=== PATIENT | female | born 1960 | race Hispanic/Latino ===

== ENCOUNTER 2024-06-07 01:00 | Inpatient (IN) | payer BC ==
[2024-06-07] VITALS (7 sets, daily range): BP systolic 114–147; BP diastolic 64–88; PULSE 55–62; RESP 14–18; O2SAT 98
[~2024-06-07] VITALS: Ht 157.5 cm; Wt 53.4 kg
[2024-06-07 01:28] LABS: BASOPHILS # (AUTO) 0.07 K/uL (0.00-0.20); BASOPHILS % (AUTO) 0.8 % (0.0-5.0); EOSINOPHILS # (AUTO) 0.37 K/uL (0.00-0.70); EOSINOPHILS % (AUTO) 4.2 % (0.0-8.0); HEMATOCRIT 43.1 % (36-48); IMMATURE GRANULOCYTE ABSOLUTE 0.02 K/uL (0-1); LYMPHOCYTES # (AUTO) 2.9 K/uL (1.0-4.8); LYMPHOCYTES % (AUTO) 33.4 % (21.0-51.0); MEAN CORPUSCULAR HEMOGLOBIN 31.5 pg (27.0-33.0); MEAN CORPUSCULAR HGB CONC 33.2 g/dL (32.0-36.0); MEAN CORPUSCULAR VOLUME 94.9 fL (79-99); MONOCYTES # (AUTO) 0.7 K/uL (0.1-1.0); MONOCYTES % (AUTO) 8.2 % (3.0-13.0); NEUTROPHILS # (AUTO) 4.6 K/uL (1.8-7.7); NEUTROPHILS % (AUTO) 53.2 % (40.0-77.0); PLATELET COUNT (AUTO) 298 K/uL (130-400); RED BLOOD CELL COUNT(AUTO) 4.54 MIL/uL (4.00-5.50); RED CELL DISTRIBUTION WIDTH 12.7 % (11.0-15.5); WHITE BLOOD COUNT (AUTO) 8.7 K/uL (4.8-10.8)
[2024-06-07 01:35] LABS: APPEARANCE,URINE CLEAR (CLEAR); BILIRUBIN,URINE NEGATIVE (NEGATIVE); COLOR,URINE YELLOW (YELLOW); GLUCOSE, URINE (UA) 300 mg/dL (NEGATIVE); KETONES,URINE NEGATIVE (NEGATIVE); LEUKOCYTE ESTERASE ,URINE NEGATIVE Leu/uL (NEGATIVE); NITRATE,URINE NEGATIVE (NEGATIVE); OCCULT BLOOD,URINE NEGATIVE (NEGATIVE); PROTEIN,URINE 20 mg/dL (NEGATIVE); UROBILINOGEN,URINE 0.2 mg/dL (0.2-1.0)
[2024-06-07 01:36] LABS: CREATININE 0.6 mg/dL (0.5-1.0); POTASSIUM 4.3 mmol/L (3.5-5.1)
[2024-06-07 01:39] LABS: ADD UA MICROSCOPIC YES
[2024-06-07 01:41] LABS: RBC,URINE 0-1 /HPF (0-1); SQUAMOUS EPITHELIAL CELL,UR RARE /HPF (0-2); WBC,URINE 0-1 /HPF (0-1)
[2024-06-07 01:52] LABS: ALBUMIN 3.9 g/dL (3.5-5.0); BILIRUBIN,TOTAL 2.4 mg/dL (0.2-1.0); TOTAL PROTEIN, SERUM 7.9 g/dL (6.0-8.3)
[2024-06-07] MEDS: MORPHINE 2 MG SYG IVP ONE (03:02)
[2024-06-07] MEDS ORDERED: LEVO75CA5 PO (03:37)
[2024-06-07] MEDS ORDERED: ROSU10TA72 PO (03:37)
[2024-06-07] MEDS ORDERED: METF-445 PO (03:37)
[2024-06-07] MEDS ORDERED: EMPA25TA PO (03:37)
[2024-06-07] MEDS: DEXTROSE 5 %-0.45 % NACL 1,000 ML IV SCH (04:00)
[2024-06-07] MEDS ORDERED: ONDANSETRON 4MG INJ IVP PRN (04:00)
[2024-06-07] MEDS ORDERED: MELO-108 PO (05:36)
[2024-06-07 08:55] LABS: BASOPHILS # (AUTO) 0.06 K/uL (0.00-0.20); BASOPHILS % (AUTO) 0.9 % (0.0-5.0); EOSINOPHILS # (AUTO) 0.26 K/uL (0.00-0.70); EOSINOPHILS % (AUTO) 3.7 % (0.0-8.0); HEMATOCRIT 39.6 % (36-48); IMMATURE GRANULOCYTE ABSOLUTE 0.01 K/uL (0-1); LYMPHOCYTES # (AUTO) 1.8 K/uL (1.0-4.8); LYMPHOCYTES % (AUTO) 25.9 % (21.0-51.0); MEAN CORPUSCULAR HEMOGLOBIN 32.1 pg (27.0-33.0); MEAN CORPUSCULAR HGB CONC 33.6 g/dL (32.0-36.0); MEAN CORPUSCULAR VOLUME 95.7 fL (79-99); MONOCYTES # (AUTO) 0.5 K/uL (0.1-1.0); MONOCYTES % (AUTO) 7.1 % (3.0-13.0); NEUTROPHILS # (AUTO) 4.4 K/uL (1.8-7.7); NEUTROPHILS % (AUTO) 62.3 % (40.0-77.0); PLATELET COUNT (AUTO) 273 K/uL (130-400); RED BLOOD CELL COUNT(AUTO) 4.14 MIL/uL (4.00-5.50); RED CELL DISTRIBUTION WIDTH 12.9 % (11.0-15.5)
[2024-06-07] MEDS: ENOXAPARIN SODIUM 30 MG/0.3 ML SQ SCH (09:02)
[2024-06-07 09:21] LABS: ALBUMIN 3.4 g/dL (3.5-5.0); BILIRUBIN,DIRECT 0.4 mg/dL (0.0-0.3); BILIRUBIN,TOTAL 0.8 mg/dL (0.2-1.0); CREATININE 0.6 mg/dL (0.5-1.0); POTASSIUM 4.3 mmol/L (3.5-5.1)
[2024-06-07] MEDS: INSULIN HUMULIN R 100 UNIT/ML 3ML SQ SCH (11:35)
[2024-06-07] MEDS: MORPHINE 4 MG SYG IVP PRN (22:41)
[2024-06-08] VITALS (7 sets, daily range): BP systolic 115–145; BP diastolic 66–87; PULSE 55–58; RESP 18; O2SAT 97–98
[2024-06-08 05:05] LABS: HEMATOCRIT 36.2 % (36-48); MEAN CORPUSCULAR HEMOGLOBIN 31.1 pg (27.0-33.0); MEAN CORPUSCULAR HGB CONC 32.9 g/dL (32.0-36.0); MEAN CORPUSCULAR VOLUME 94.5 fL (79-99); RED BLOOD CELL COUNT(AUTO) 3.83 MIL/uL (4.00-5.50); RED CELL DISTRIBUTION WIDTH 13.2 % (11.0-15.5); WHITE BLOOD COUNT (AUTO) 7.2 K/uL (4.8-10.8)
[2024-06-08 05:21] LABS: BILIRUBIN,TOTAL 0.6 mg/dL (0.2-1.0); CREATININE 0.6 mg/dL (0.5-1.0); POTASSIUM 3.5 mmol/L (3.5-5.1); TOTAL PROTEIN, SERUM 6.3 g/dL (6.0-8.3)
[2024-06-08] MEDS ORDERED: POTASSIUM CHLORIDE 20MEQ/100ML 100 ML IV PRN (09:00)
[2024-06-08] MEDS ORDERED: POTASSIUM CHLORIDE 10% ELIXIR 20 MEQ/15 ML UDCUP PO PRN (09:00)
[2024-06-08] MEDS: KCL 20 MEQ ERTAB PO PRN (12:17)
[2024-06-08 18:30] LABS: HEPATITIS A IGM ANTIBODY Non-Reactive (Nonreactive); HEPATITIS B CORE IGM ANTIBODY Non-Reactive (Negative); HEPATITIS B SURFACE ANTIGEN Non-Reactive (Nonreactive); HEPATITIS C ANTIBODY Non-Reactive (Nonreactive)
[2024-06-09] VITALS (29 sets, daily range): BP systolic 94–202; BP diastolic 61–96; PULSE 52–86; RESP 12–19; O2SAT 98–100
[2024-06-09 05:29] LABS: HEMATOCRIT 37.2 % (36-48); MEAN CORPUSCULAR HEMOGLOBIN 31.4 pg (27.0-33.0); MEAN CORPUSCULAR HGB CONC 32.8 g/dL (32.0-36.0); MEAN CORPUSCULAR VOLUME 95.9 fL (79-99); RED BLOOD CELL COUNT(AUTO) 3.88 MIL/uL (4.00-5.50); RED CELL DISTRIBUTION WIDTH 12.9 % (11.0-15.5)
[2024-06-09 05:55] LABS: ALBUMIN 3.2 g/dL (3.5-5.0); BILIRUBIN,TOTAL 0.6 mg/dL (0.2-1.0); CREATININE 0.5 mg/dL (0.5-1.0); POTASSIUM 3.6 mmol/L (3.5-5.1); TOTAL PROTEIN, SERUM 6.5 g/dL (6.0-8.3)
[2024-06-09] MEDS: CEFAZOLIN SODIUM 2 GM VIAL ONE (11:04)
[2024-06-09] MEDS ORDERED: IOHEXOL-350 50ML VIAL IV ONE (11:07)
[2024-06-09] MEDS: 0.9%NACL 1000ML 1,000 ML IV ONE (11:12)
[2024-06-09] MEDS ORDERED: EPINEPHRINE PF 1MG (1:1,000) 1 MG/ML AMP ONE (12:42)
[2024-06-09] MEDS ORDERED: BUPIVACAINE/PF 0.25% 30ML VIAL IJ ONE (12:42)
[2024-06-09] MEDS ORDERED: LIDOCAINE PF 100MG/5ML (2%) SYRINGE 5ML ONE (12:51)
[2024-06-09] MEDS ORDERED: PROPOFOL 10 MG/ML 20ML VIAL IV ONE (12:51)
[2024-06-09] MEDS ORDERED: SUCCINYLCHOLINE CHLORIDE 20 MG/ML 10 ML VIAL ONE (12:51)
[2024-06-09] MEDS ORDERED: FENTANYL CITRATE PF 50 MCG/1 ML 2ML VIAL ONE (12:51)
[2024-06-09] MEDS ORDERED: MIDAZOLAM HCL 1 MG/ML 2ML VIAL ONE (12:52)
[2024-06-09] MEDS ORDERED: ROCURONIUM BROMIDE 10MG/1ML 5ML VL ONE (12:52)
[2024-06-09] MEDS: CEFAZOLIN SODIUM 2 GM VIAL IVPB ONE (13:00)
[2024-06-09] MEDS: BUPIVACAINE/PF 0.5% 30ML VIAL ONE (13:14)
[2024-06-09] MEDS ORDERED: GLYCOPYRROLATE 0.2 MG/ML 5 ML VIAL ONE (13:52)
[2024-06-09] MEDS ORDERED: NEOSTIGMINE METHYLSULFATE 1MG/ML IV ONE (13:52)
[2024-06-09] MEDS: HYDRALAZINE 20MG/ML VIAL ONE (14:54)
[2024-06-09] MEDS: MEPERIDINE-PF 25 MG/ML SYG ONE (14:54)
[2024-06-09] MEDS: ONDANSETRON 4MG INJ ONE (14:55)
[2024-06-09] MEDS: ACETAMINOPHEN 1,000 MG/100 ML VIAL IV ONE (14:56)
[2024-06-09] MEDS: LACTATED RINGERS 1000ML 1,000 ML IV SCH (16:05)
[2024-06-09] MEDS: MORPHINE 2 MG SYG IVP PRN (21:23)
[2024-06-10] VITALS (30 sets, daily range): BP systolic 135–190; BP diastolic 54–85; PULSE 56–92; RESP 14–18; O2SAT 98
[2024-06-10] MEDS: LACTATED RINGERS 1000ML 1,000 ML IV ONE (07:30)
[2024-06-10] MEDS ORDERED: IOHEXOL-350 50ML VIAL IV ONE (07:56)
[2024-06-10] MEDS ORDERED: FENTANYL CITRATE PF 50 MCG/1 ML 2ML VIAL ONE (08:45)
[2024-06-10] MEDS ORDERED: PROPOFOL 10 MG/ML 20ML VIAL IV ONE (08:45)
[2024-06-10] MEDS ORDERED: DEXAMETHASONE SOD PHOSPHATE 10MG/ML 1ML VIAL ONE (08:46)
[2024-06-10] MEDS ORDERED: NEOSTIGMINE METHYLSULFATE 1MG/ML IV ONE (08:46)
[2024-06-10] MEDS ORDERED: LIDOCAINE PF 100MG/5ML (2%) SYRINGE 5ML ONE (08:46)
[2024-06-10] MEDS ORDERED: GLYCOPYRROLATE 0.2 MG/ML 5 ML VIAL ONE (08:46)
[2024-06-10] MEDS ORDERED: ROCURONIUM BROMIDE 10MG/1ML 5ML VL ONE (08:46)
[2024-06-10] MEDS ORDERED: ONDANSETRON 4MG INJ ONE (08:48)
[2024-06-10] MEDS: INDOMETHACIN 100 MG SUPP.RECT RC ONE (09:02)
[2024-06-10] MEDS: HYDRALAZINE 20MG/ML VIAL ONE (09:59)
[2024-06-11 04:00] VITALS: BP 103/58; PULSE 73; RESP 17
[2024-06-11] MEDS: LEVOTHYROXINE 75 MCG TABLET PO SCH (06:43)
[2024-06-11 08:00] VITALS: BP 169/70; PULSE 65; RESP 17
[2024-06-11 08:10] VITALS: O2SAT 97
[2024-06-11] MEDS ORDERED: EMPAGLIFLOZIN 25MG TABLET PO SCH (09:00)
[2024-06-11 12:00] VITALS: BP 152/64; PULSE 77; RESP 17
[2024-06-11] MEDS ORDERED: MELOXICAM 7.5 MG TABLET PO SCH (21:00)
== END 2024-06-11 14:30 | disposition home or self-care (01) | DRG 417 ==
LOC: EDH 01:00 → EDHIP 03:43 → 3AH 05:11
PROVIDERS: ADMIT Internal Medicine; ATTEND Internal Medicine
PROC: BF101ZZ Fluoroscopy of Bile Ducts using Low Osmolar Contrast (ICD-10-PCS; 2024-06-09)
PROC: 0FT44ZZ Resection of Gallbladder, Percutaneous Endoscopic Approach (ICD-10-PCS; principal; 2024-06-09 12:48)
PROC: 0F798ZZ Dilation of Common Bile Duct, Via Natural or Artificial Opening Endoscopic (ICD-10-PCS; 2024-06-10)
DX: K80.62 Calculus of gallbladder and bile duct with acute cholecystitis without obstruction (principal); K85.10 Biliary acute pancreatitis without necrosis or infection; E11.9 Type 2 diabetes mellitus without complications; I10 Essential (primary) hypertension; E78.5 Hyperlipidemia, unspecified; E03.9 Hypothyroidism, unspecified; K82.8 Other specified diseases of gallbladder
CPT/HCPCS: 36415; 43262; 43264; 71045; 74176; 74181; 74300; 74328; 74330; 76705; 80053; 80074; 81001; 82248; 82948; 83690; 84484; 85025; 85027; 93005; C1758; C1769; C1773; G0378; J0171; J0330; J0360; J1100; J1650; J1815; J2001; J2175; J2250; J2270; J2405; J2704; J2710; J3010; J3490; J7030; J7042; J7120; Q9967; A4215; A4216; A4222; A4223; A4600; A4649; A4657; A4930; A7002; G0168; J0665; J0690; S8037